=== PATIENT | female | born 1960 | race African-American/Black ===

== ENCOUNTER 2019-05-24 20:06 | Emergency (ER) | payer OTHER ==
[~2019-05-24] VITALS: Ht 165.1 cm; Wt 77.1 kg
[2019-05-24 22:48] VITALS: BP 100/55
== END 2019-05-24 22:48 | disposition home or self-care (01) ==
LOC: ED 20:06
DX: L03.116 Cellulitis of left lower limb (principal); Z88.0 Allergy status to penicillin; Z98.890 Other specified postprocedural states; Z98.84 Bariatric surgery status
CPT/HCPCS: J1885; Q0092

== ENCOUNTER 2019-06-16 01:56 | Observation (INO) | payer OTHER ==
[~2019-06-16] VITALS: Ht 167.6 cm; Wt 71.7 kg
[2019-06-16 02:05] VITALS: Ht 167.6 cm; Wt 71.7 kg
[2019-06-16 02:41] LABS: BASOPHIL % 0.3 % (0-2); PLATELET COUNT 170 x10^3mcL (130-400); RED CELL DISTRIBUTION WIDTH 13.7 % (11.5-14.5)
[2019-06-16 03:00] LABS: ALBUMIN 3.7 g/dL (3.4-5.0); ALKALINE PHOSPHATASE 103 U/L (46-116); ALT/SGPT 59 U/L (14-59); AMYLASE 41 U/L (25-115); AST/SGOT 49 U/L (15-37); BILIRUBIN TOTAL 0.52 mg/dL (0.20-1.00); CALCIUM 8.8 mg/dL (8.5-10.1); CARBON DIOXIDE 28.8 mmol/L (21-32); CHLORIDE SERUM 105 mmol/L (98-107); CREATININE SERUM 0.8 mg/dL (0.6-1.0); GFR1 > 60 mL/min; GLUCOSE SERUM 108 mg/dL (74-106); LIPASE 176 IU/L (73-393); SODIUM SERUM 141 mmol/L (136-145); TOTAL PROTEIN, SERUM 7.5 g/dL (6.4-8.2)
[2019-06-16 03:01] LABS: POTASSIUM SERUM 2.8 mmol/L (3.5-5.1)
[2019-06-16] MEDS ORDERED: CALCIUM500 M1 PO (05:42)
[2019-06-16] MEDS ORDERED: B COMPLEX1 EACH PO (05:42)
[2019-06-16] MEDS ORDERED: MULTI-VITAMINS1 TAB PO (05:42)
[2019-06-16] MEDS ORDERED: PROBIOTIC1 EAC1 PO (05:43)
[2019-06-16 12:50] VITALS: BP 134/87
[2019-06-16 16:38] VITALS: BP 138/84
[2019-06-16 19:50] VITALS: BP 110/69
[2019-06-17 05:57] VITALS: BP 149/88
[2019-06-17 06:40] LABS: BASOPHIL % 0.2 % (0-2); PLATELET COUNT 177 x10^3mcL (130-400); RED CELL DISTRIBUTION WIDTH 14.1 % (11.5-14.5)
[2019-06-17 06:49] LABS: CALCIUM 8.8 mg/dL (8.5-10.1); CARBON DIOXIDE 31.7 mmol/L (21-32); CHLORIDE SERUM 107 mmol/L (98-107); CREATININE SERUM 0.9 mg/dL (0.6-1.0); GFR1 > 60 mL/min; GLUCOSE SERUM 130 mg/dL (74-106); POTASSIUM SERUM 4.4 mmol/L (3.5-5.1); SODIUM SERUM 144 mmol/L (136-145)
[2019-06-17 08:53] VITALS: BP 149/90
== END 2019-06-17 15:03 | disposition left against medical advice (07) | DRG 390 ==
LOC: ED 01:56 → MU 06:03
PROVIDERS: Emergency Medicine; ADMIT Internal Medicine Pulmonary Disease
DX: K56.609 Unspecified intestinal obstruction, unspecified as to partial versus complete obstruction (principal); R11.10 Vomiting, unspecified; E86.9 Volume depletion, unspecified; E87.6 Hypokalemia; K57.30 Diverticulosis of large intestine without perforation or abscess without bleeding; Z98.84 Bariatric surgery status; Z68.25 Body mass index [BMI] 25.0-25.9, adult; Z96.652 Presence of left artificial knee joint; Z90.711 Acquired absence of uterus with remaining cervical stump
CPT/HCPCS: C9113; G0378; J1885; J2270; J2405; J2765; J3480; J7042; Q0092; Q9967